=== PATIENT | female | born 2000 | race Caucasian/White ===

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

== ENCOUNTER 2021-06-01 05:50 | Inpatient (IN) | payer OTHER ==
[2021-06-01] MEDS: IBUPROFEN 600 MG TABLET (FP) PO PRN ×3 (06:15→19:47)
[2021-06-01] MEDS ORDERED: METHYLERGONOVINE MALEATE 0.2 MG/1 ML AMP IM PRN (06:17)
[2021-06-01] MEDS ORDERED: WITCH HAZEL 50% (TUCKS) 40 PAD/JAR PAD TP PRN (06:17)
[2021-06-01] MEDS ORDERED: oxyCODONE HCL 5 MG TABLET PO PRN (06:17)
[2021-06-01] MEDS ORDERED: BISACODYL 10 MG SUPP.RECT RC PRN (06:17)
[2021-06-01] MEDS ORDERED: BENZOCAINE 28 GM HEMORRHOIDAL OINTMENT TP PRN (06:17)
[2021-06-01] MEDS ORDERED: BENZOCAINE 20% 57 GM BOTTLE TP PRN (06:17)
[2021-06-01] MEDS ORDERED: ACETAMINOPHEN 325 MG TABLET (FP) PO PRN (06:17)
[2021-06-01] MEDS ORDERED: OXYTOCIN 20 UNITS in 0.9% NS 20 UNIT/1,000 ML INFUS.BAG IV SCH (06:30)
[2021-06-01 07:17] VITALS: BMI 31.3
[2021-06-01 08:09] LABS: BASO % 0.2 % (0-2.0); EOS % 0.3 % (0-4.5); HEMATOCRIT 33.3 % (32.4-45.2); HEMOGLOBIN 11.3 GM/dL (10.7-15.3); LYMPH % 8.1 % (8-40); MCH 30.1 pg (25.7-33.7); MCHC 33.9 g/dl (32.0-36.0); MEAN PLT VOLUME 9.2 fl (7.5-11.1); MONO % 4.1 % (3.8-10.2); NEUT % 87.3 % (42.8-82.8); PLATELET COUNT 261 10^3/uL (134-434); RBC 3.75 M/mm3 (3.60-5.2); RDW 16.1 % (11.6-15.6); WHITE BLOOD COUNT 8.9 K/mm3 (4.0-10.0)
[2021-06-01 08:14] LABS: INR 0.96 (0.83-1.09)
[2021-06-01 08:17] LABS: ACTIVATED PTT 27.3 SECONDS (25.2-36.5)
[2021-06-01] MEDS ORDERED: OXYTOCIN 20 UNITS in 0.9% NS 20 UNIT/1,000 ML INFUS.BAG IV ONE (08:20)
[2021-06-01 08:21] LABS: CALCIUM 8.8 mg/dL (8.5-10.1)
[2021-06-01 08:22] LABS: BLOOD UREA NITROGEN 7.7 mg/dL (7-18)
[2021-06-01 08:25] LABS: CREATININE 0.6 mg/dL (0.55-1.3)
[2021-06-01] MEDS ORDERED: DIPHTH,PERTUSS(ACELL),TET 0.5 ML DISP.SYRIN IM ONE (08:51)
[2021-06-01] MEDS: PRENATAL VITAMINS W/ FOLIC ACID TABLET (FP) PO SCH (09:44)
[2021-06-01 09:55] LABS: PHENCYCLIDINE,URINE NEGATIVE (NEGATIVE); URINE BENZODIAZEPINES NEGATIVE (NEGATIVE)
[2021-06-01 09:56] LABS: URINE BARBITURATES NEGATIVE (NEGATIVE)
[2021-06-01 10:00] LABS: COCAINE, UR NEGATIVE (NEGATIVE); METHADONE, UR NEGATIVE (NEGATIVE); OPIATES, URI NEGATIVE (NEGATIVE); URINE AMPHETAMINES NEGATIVE (NEGATIVE)
[2021-06-02] MEDS: IBUPROFEN 600 MG TABLET (FP) PO PRN (01:58)
[2021-06-02 08:49] LABS: BASO % 0.2 % (0-2.0); EOS % 0.6 % (0-4.5); HEMATOCRIT 32.3 % (32.4-45.2); HEMOGLOBIN 10.8 GM/dL (10.7-15.3); LYMPH % 7.1 % (8-40); MCH 30.4 pg (25.7-33.7); MCHC 33.5 g/dl (32.0-36.0); MEAN CELL VOLUME 90.9 fl (80-96); MEAN PLT VOLUME 8.9 fl (7.5-11.1); MONO % 4.5 % (3.8-10.2); NEUT % 87.6 % (42.8-82.8); PLATELET COUNT 232 10^3/uL (134-434); RBC 3.55 M/mm3 (3.60-5.2); RDW 16.2 % (11.6-15.6); WHITE BLOOD COUNT 5.6 K/mm3 (4.0-10.0)
[2021-06-02] MEDS ORDERED: DIPHTH,PERTUSS(ACELL),TET 0.5 ML DISP.SYRIN IM ONE (10:00)
[2021-06-02] MEDS: PRENATAL VITAMINS W/ FOLIC ACID TABLET (FP) PO SCH (10:19)
[2021-06-02] MEDS ORDERED: SENNOSIDES/DOCUSATE COMBO (SENNA PLUS) TABLET (UD) PO PRN (22:00)
[2021-06-03] MEDS: IBUPROFEN 600 MG TABLET (FP) PO PRN (04:56)
[2021-06-03] MEDS ORDERED: LOPERAMIDE HCL 2 MG CAPSULE PO PRN (06:59)
[2021-06-03 08:26] VITALS: BP 106/58; PULSE 79; TEMP 98.3
[2021-06-03] MEDS: PRENATAL VITAMINS W/ FOLIC ACID TABLET (FP) PO SCH (09:03)
== END 2021-06-03 12:20 | disposition home or self-care (01) | DRG 560 ==
LOC: JLDR 05:50 → UNDOADMIN 06:00 → J3W 08:45
PROVIDERS: ADMIT Obstetrics & Gynecology; ATTEND Obstetrics & Gynecology
PROC: 0HQ9XZZ Repair Perineum Skin, External Approach (ICD-10-PCS; principal; 2021-06-01)
PROC: 10E0XZZ Delivery of Products of Conception, External Approach (ICD-10-PCS; 2021-06-01)
DX: O34.211 Maternal care for low transverse scar from previous cesarean delivery (principal); O70.0 First degree perineal laceration during delivery; Z3A.37 37 weeks gestation of pregnancy; Z37.0 Single live birth
CPT/HCPCS: 36415; 59409; 80048; 80307; 85025; 85610; 85730; 86780; 86850; 86900; 86901; 90715; C9803; U0003; U0005

== ENCOUNTER 2024-02-23 12:00 | Emergency (ER) | payer OTHER ==
[2024-02-23 12:13] VITALS: BP 133/75; PULSE 78; RESP 20; TEMP 97.7; BMI 32.3
[2024-02-23] MEDS ORDERED: KETOROLAC TROMETHAMINE 30 MG/1 ML VIAL ONE (13:28)
[2024-02-23] MEDS ORDERED: ACETAMINOPHEN INJECTION 100 ML ONE (13:28)
[2024-02-23] MEDS: KETOROLAC TROMETHAMINE 30 MG/1 ML VIAL IVPUSH ONE (13:31)
[2024-02-23] MEDS: ACETAMINOPHEN 1000 MG/100 ML BAG IVPB ONE (13:35)
[2024-02-23 13:53] LABS: BASO % 0.5 % (0-2.0); EOS % 0.9 % (0-4.5); HEMATOCRIT 41.1 % (32.4-45.2); HEMOGLOBIN 13.6 GM/dL (10.7-15.3); LYMPH % 8.7 % (8-40); MCH 29.9 pg (25.7-33.7); MCHC 33.1 g/dl (32.0-36.0); MEAN CELL VOLUME 90.4 fl (80-96); MEAN PLT VOLUME 8.8 fl (7.5-11.1); MONO % 2.7 % (3.8-10.2); NEUT % 87.2 % (42.8-82.8); PLATELET COUNT 395 10^3/uL (134-434); RBC 4.54 M/mm3 (3.60-5.2)
[2024-02-23 13:57] LABS: EPI CELLS 25 /uL (0-25.1); HYALINE CASTS 0 /uL (0-3.1); URINE APPEARANCE CLEAR; URINE BACTERIA 557 /uL (0-1359); URINE BILIRUBIN NEGATIVE (NEGATIVE); URINE COLOR YELLOW; URINE GLUCOSE (UA) NEGATIVE (NEGATIVE); URINE KETONE NEGATIVE (NEGATIVE); URINE LEUK ESTERASE NEGATIVE (NEGATIVE); URINE NITRITE NEGATIVE (NEGATIVE); URINE PROTEIN NEGATIVE (NEGATIVE); URINE RBC 25 /uL (0-23.9); URINE UROBILINOGEN 0.2 mg/dL (0.2-1.0); URINE WBC 22 /uL (0-25.8)
[2024-02-23 14:07] LABS: HCG,QUALITATIVE URINE Negative
[2024-02-23 14:51] LABS: POTASSIUM 4.2 mmol/L (3.5-5.1)
[2024-02-23 14:53] LABS: BLOOD UREA NITROGEN 10.1 mg/dL (7-18); CALCIUM 9.4 mg/dL (8.5-10.1)
[2024-02-23 14:56] LABS: CREATININE 0.8 mg/dL (0.55-1.3)
[2024-02-23 15:48] LABS: HIV INTERPRETATION NEGATIVE (NEGATIVE)
== END 2024-02-23 16:41 | disposition home or self-care (01) ==
LOC: JER 12:00
PROC: 3E033NZ Introduction of Analgesics, Hypnotics, Sedatives into Peripheral Vein, Percutaneous Approach (ICD-10-PCS; principal; 2024-02-23)
PROC: 3E0333Z Introduction of Anti-inflammatory into Peripheral Vein, Percutaneous Approach (ICD-10-PCS; 2024-02-23)
DX: R20.0 Anesthesia of skin (principal); M54.50 Low back pain, unspecified; R10.9 Unspecified abdominal pain
CPT/HCPCS: 36415; 74176-TC; 80048; 81003; 84703; 85025; 86803; 87086; 87389; 99284-25; J0131